=== PATIENT | male | born 1960 | race African-American/Black ===

== ENCOUNTER 2021-03-10 00:02 | Inpatient (IN) | payer MEDICAID ==
[~2021-03-10] VITALS: Ht 167.6 cm; Wt 84.7 kg
[2021-03-10 03:12] LABS: Basophils # (auto) 0.1 10 ^3/uL (0-0.2); Basophils % (auto) 0.8 % (0.0-2.0); Eosinophils # (auto) 0.1 10 ^3/uL (0-0.8); Eosinophils % (auto) 1.2 % (0.0-7.0); Hematocrit 38.1 % (41.0-53.0); Lymphocytes # (auto) 1.5 10 ^3/uL (0.4-5.4); Lymphocytes % (auto) 13.5 % (10.0-50.0); Mean Corpuscular Hemoglobin 32.4 pg (28.0-32.0); Mean Corpuscular Hgb Conc. 34.2 g/dL (32.0-36.0); Mean Corpuscular Volume 94.7 fL (80.0-100.0); Monocytes # (auto) 0.8 10 ^3/uL (0-1.3); Monocytes % (auto) 6.9 % (0.0-12.0); Neutrophils # (auto) 8.7 10 ^3/uL (1.6-8.6); Neutrophils % (auto) 77.6 % (37.0-80.0); Nucleated Red Blood Cells % 0.1 %; Red Blood Cells 4.02 10^6/uL (4.5-5.90); White Blood Cell 11.2 10^3/uL (4.4-10.8)
[2021-03-10 03:28] LABS: INR 1.09 (0.9-1.15); Partial Thromboplastin Time 28.2 sec (23.6-33.0)
[2021-03-10 03:36] LABS: Albumin 2.6 g/dL (3.4-5.0); BUN/Creatinine Ratio 14.9; Magnesium 1.7 mg/dL (1.6-2.6); Potassium 3.6 mmol/L (3.5-5.1)
[2021-03-10 03:41] LABS: Bilirubin, Total 0.4 mg/dL (0.2-1.0); Total Protein 6.4 g/dL (6.4-8.2)
[2021-03-10 03:50] LABS: Urine Bacteria MANY /hpf (None Seen); Urine Blood Negative /uL (Negative); Urine Mucus FEW (None Seen); Urine Specific Gravity 1.015 (1.001-1.035); Urine Sperm PRESENT /hpf (None Seen); Urine WBC 19 /hpf (0 - 3); Urine WBC Clumps PRESENT /hpf (None Seen)
[2021-03-10] MEDS ORDERED: FUROSEMIDE 20 MG/2 ML VIAL IV ONE ×2 (04:30→10:00)
[2021-03-10] MEDS ORDERED: cefTRIAXone 1GM/50ML D5W 50 ML IV ONE (05:30)
[2021-03-10] MEDS ORDERED: ASPirin 325 MG TAB PO ONE (05:30)
[2021-03-10] MEDS ORDERED: MORPHINE SULFATE INJECTION 2 MG/ML SYRG IV PRN (06:45)
[2021-03-10] MEDS ORDERED: NITROGLYCERIN 0.4 MG SL TAB SL PRN (06:45)
[2021-03-10] MEDS ORDERED: DOCUSATE SOD 100 MG CAP PO ONE (06:45)
[2021-03-10] MEDS ORDERED: POTASSIUM CHL 20 Meq TABLET PO ONE (06:45)
[2021-03-10] MEDS ORDERED: ONDANSETRON HCL 4 MG/2 ML VIAL IM ONE (12:00)
[2021-03-10] MEDS ORDERED: ACETAMINOPHEN 325 MG TAB PO ONE (12:00)
[2021-03-10] MEDS ORDERED: TRAZ50TA2 PO (13:40)
[2021-03-10] MEDS ORDERED: HYDR50TA69 PO (13:40)
[2021-03-10] MEDS ORDERED: OMEP20TA PO (13:40)
[2021-03-10] MEDS ORDERED: SIME80CH11 PO (13:40)
[2021-03-10] MEDS ORDERED: AMIT1TAB35 PO (13:40)
[2021-03-10] MEDS ORDERED: ASPI-543 PO (13:40)
[2021-03-10] MEDS ORDERED: BUPR100T15 PO (13:40)
[2021-03-10] MEDS ORDERED: MELO1TAB73 PO (13:40)
[2021-03-10] MEDS ORDERED: LISI-716 PO (13:40)
[2021-03-10] MEDS ORDERED: METF-370 PO (13:40)
[2021-03-10] MEDS ORDERED: GLIP-110 PO (13:40)
[2021-03-10] MEDS ORDERED: SIMV-8 PO (13:40)
[2021-03-10 17:00] VITALS: BP 144/88
[2021-03-10] MEDS ORDERED: ACET-1156 PO (20:08)
[2021-03-10] MEDS ORDERED: DEXTROSE (50%) 50ML SYRG IV ONE (20:15)
[2021-03-10] MEDS ORDERED: ACETAMINOPHEN 325 MG TAB PO PRN (20:15)
[2021-03-10] MEDS ORDERED: ONDANSETRON HCL 4 MG/2 ML VIAL IV PRN (20:15)
[2021-03-10] MEDS ORDERED: DEXTROSE (50%) 50ML SYRG IV PRN (21:00)
[2021-03-10 22:00] VITALS: BP 144/85
[2021-03-10] MEDS ORDERED: hydrALAZINE HCL 10 MG TAB PO PRN (22:00)
[2021-03-10] MEDS ORDERED: AMITRIPTYLINE HCL 25 MG TAB PO SCH (22:00)
[2021-03-10] MEDS ORDERED: ALBUTEROL SULF 2.5 MG/0.5ML(0.5%) NEB SOLN NEB PRN (22:00)
[2021-03-10] MEDS ORDERED: InsuLIN REG 1unit/0.01ml Soln (100units/ml) SC SCH (22:00)
[2021-03-10] MEDS ORDERED: ATORVASTATIN 20 MG TAB PO SCH (22:00)
[2021-03-10] MEDS: ACCU-CHEK COMFORT CURVE STRIP VI SCH (23:00)
[2021-03-10] MEDS: SIMETHICONE 80 MG CHEWABLE TABLET PO SCH (23:00)
[2021-03-10] MEDS: InsuLIN REG 1unit/0.01ml Soln (100units/ml) SC SCH (23:14)
[2021-03-11 04:54] VITALS: BP 138/90
[2021-03-11] MEDS: SIMETHICONE 80 MG CHEWABLE TABLET PO SCH (06:10)
[2021-03-11] MEDS: ACCU-CHEK COMFORT CURVE STRIP VI SCH (06:10)
[2021-03-11] MEDS: InsuLIN REG 1unit/0.01ml Soln (100units/ml) SC SCH (06:12)
[2021-03-11 06:44] LABS: BUN/Creatinine Ratio 23.3; Calcium 8.6 mg/dL (8.5-10.1); Potassium 3.7 mmol/L (3.5-5.1)
[2021-03-11 06:48] LABS: Basophils # (auto) 0.1 10 ^3/uL (0-0.2); Eosinophils # (auto) 0.1 10 ^3/uL (0-0.8); Hematocrit 40.6 % (41.0-53.0); Hemoglobin 13.8 g/dL (13.5-17.5); Lymphocytes # (auto) 1.6 10 ^3/uL (0.4-5.4); Neutrophils % (auto) 77.2 % (37.0-80.0); Nucleated Red Blood Cells % 0.1 %
[2021-03-11 06:52] LABS: Basophils % (auto) 0.6 % (0.0-2.0); Lymphocytes % (auto) 13.3 % (10.0-50.0); Mean Corpuscular Hemoglobin 32.6 pg (28.0-32.0); Mean Corpuscular Hgb Conc. 34.1 g/dL (32.0-36.0); Mean Corpuscular Volume 95.7 fL (80.0-100.0); Monocytes % (auto) 7.9 % (0.0-12.0); Neutrophils # (auto) 9.4 10 ^3/uL (1.6-8.6); Red Blood Cells 4.24 10^6/uL (4.5-5.90); White Blood Cell 12.1 10^3/uL (4.4-10.8)
[2021-03-11] MEDS ORDERED: buPROPion HCL 75 MG TAB PO SCH (07:00)
[2021-03-11] MEDS ORDERED: InsuLIN REG 1unit/0.01ml Soln (100units/ml) SC SCH ×2 (07:00→17:00)
[2021-03-11 09:00] VITALS: BP 122/77
[2021-03-11] MEDS ORDERED: LISINOPRIL 10 MG TAB PO SCH (10:00)
[2021-03-11] MEDS ORDERED: PANTOPRAZOLE 40 MG TAB PO SCH (10:00)
[2021-03-11] MEDS ORDERED: PATIENTS OWN MEDICATION (Simvastatin 20 MG) PO SCH (10:00)
[2021-03-11] MEDS ORDERED: FUROSEMIDE 40 MG/4 ML VIAL IV SCH (10:00)
[2021-03-11] MEDS ORDERED: ASPirin 81 mg TAB PO SCH (10:00)
[2021-03-11] MEDS ORDERED: ACETAMINOPHEN 325 MG TAB PO PRN (10:45)
[2021-03-11] MEDS ORDERED: HYDROcodone-ACET 5/325MG TAB PO PRN (10:45)
[2021-03-11] MEDS ORDERED: hydrALAZINE HCL 20 MG/ML VL IV PRN (10:45)
[2021-03-11 12:25] VITALS: BP 130/84
[2021-03-11] MEDS ORDERED: DEXTROSE (50%) 50ML SYRG IV PRN (14:15)
[2021-03-11] MEDS ORDERED: ACCU-CHEK COMFORT CURVE STRIP VI SCH (17:00)
[2021-03-11] MEDS ORDERED: FURO1TAB31 PO (17:55)
[2021-03-11] MEDS ORDERED: DEXT1SYP9 PO (17:55)
[2021-03-11] MEDS ORDERED: LISI20TA28 PO (17:55)
[2021-03-11] MEDS ORDERED: guaiFENesin-DM 100/10mg/5ml SYR PO PRN (18:00)
== END 2021-03-11 20:52 | disposition home health service (06) | DRG 194 ==
LOC: ER 00:02 → EDBD 00:02 → UNDOADMIN 06:39 → TELE 06:39 → TELE-WESTW 13:04 → OBSVTOIN 22:47
PROVIDERS: ADMIT Nurse Practitioner Family; ATTEND Nurse Practitioner Family
DX: I11.0 Hypertensive heart disease with heart failure (principal); J96.01 Acute respiratory failure with hypoxia; I50.21 Acute systolic (congestive) heart failure; I42.9 Cardiomyopathy, unspecified; E11.9 Type 2 diabetes mellitus without complications; E78.5 Hyperlipidemia, unspecified; Z72.0 Tobacco use; F32.9 Major depressive disorder, single episode, unspecified; Z20.822 Contact with and (suspected) exposure to COVID-19; K21.9 Gastro-esophageal reflux disease without esophagitis
CPT/HCPCS: 36415; 71045; 80048; 80053; 81001; 82962; 83735; 83880; 84484; 85025; 85610; 85730; 87040; 87426; 93005; 93306; 93970; 96365; 96366; 96375; G0378; J0696; J1815

== ENCOUNTER 2021-04-30 07:46 | Inpatient (IN) | payer MEDICAID ==
[~2021-04-30] VITALS: Ht 182.9 cm; Wt 87.9 kg
[~2021-04-30 07:46] MED LIST: AMIT1TAB35 PO; ASPI-543 PO; BUPR100T15 PO; DEXT1SYP9 PO; FURO1TAB31 PO; GLIP-110 PO; LISI20TA28 PO; METF-370 PO; OMEP20TA PO; SIME80CH11 PO; SIMV-8 PO; TRAZ50TA2 PO
[2021-04-30 08:46] LABS: Basophils # (auto) 0.1 10 ^3/uL (0-0.2); Basophils % (auto) 0.6 % (0.0-2.0); Eosinophils # (auto) 0.1 10 ^3/uL (0-0.8); Eosinophils % (auto) 1.2 % (0.0-7.0); Hematocrit 39.8 % (41.0-53.0); Hemoglobin 13.8 g/dL (13.5-17.5); Lymphocytes # (auto) 1.3 10 ^3/uL (0.4-5.4); Lymphocytes % (auto) 14.3 % (10.0-50.0); Mean Corpuscular Hemoglobin 32.6 pg (28.0-32.0); Mean Corpuscular Hgb Conc. 34.7 g/dL (32.0-36.0); Monocytes # (auto) 0.8 10 ^3/uL (0-1.3); Monocytes % (auto) 9.2 % (0.0-12.0); Neutrophils # (auto) 6.7 10 ^3/uL (1.6-8.6); Neutrophils % (auto) 74.7 % (37.0-80.0); Nucleated Red Blood Cells % 0.2 %; Red Blood Cells 4.24 10^6/uL (4.5-5.90); Red Cell Distribution Width 14.5 % (11.8-14.3); White Blood Cell 8.9 10^3/uL (4.4-10.8)
[2021-04-30 08:54] LABS: Albumin 3.1 g/dL (3.4-5.0); Calcium 8.4 mg/dL (8.5-10.1); Magnesium 1.9 mg/dL (1.6-2.6); Potassium 3.8 mmol/L (3.5-5.1)
[2021-04-30 09:00] LABS: BUN/Creatinine Ratio 15.1; Bilirubin, Total 0.5 mg/dL (0.2-1.0); Total Protein 6.9 g/dL (6.4-8.2)
[2021-04-30 09:11] LABS: INR 1.07 (0.9-1.15); Partial Thromboplastin Time 25.9 sec (23.6-33.0)
[2021-04-30] MEDS ORDERED: ASPirin 81 mg TAB PO ONE (09:15)
[2021-04-30] MEDS ORDERED: AZITHROMYCIN 500MG/ 250ML 250 ML IV ONE (10:00)
[2021-04-30] MEDS ORDERED: ENOXAPARIN SOD 60 MG/0.6 ML SYRINGE SC ONE (10:00)
[2021-04-30] MEDS ORDERED: cefTRIAXone 1GM/50ML D5W 50 ML IV ONE (10:00)
[2021-04-30] MEDS ORDERED: METOPROLOL TARTRATE 1MG/1ML-5ML VIAL IV ONE (10:00)
[2021-04-30] MEDS ORDERED: ONDANSETRON HCL 4 MG/2 ML VIAL IV PRN (10:30)
[2021-04-30] MEDS ORDERED: DOCUSATE SOD 100 MG CAP PO PRN (10:30)
[2021-04-30] MEDS ORDERED: HYDROcodone-ACET 5/325MG TAB PO PRN (10:30)
[2021-04-30] MEDS ORDERED: TEMAZEPAM 15 MG CAP PO PRN (10:30)
[2021-04-30] MEDS ORDERED: NITROGLYCERIN 0.4 MG SL TAB SL PRN (10:30)
[2021-04-30] MEDS ORDERED: ACETAMINOPHEN 325 MG TAB PO PRN (10:30)
[2021-04-30] MEDS ORDERED: MORPHINE SULFATE INJECTION 2 MG/ML SYRG IV PRN (10:30)
[2021-04-30] MEDS ORDERED: hydrALAZINE HCL 20 MG/ML VL IV PRN (11:00)
[2021-04-30] MEDS ORDERED: DEXTROSE (50%) 50ML SYRG IV PRN (11:00)
[2021-04-30 13:53] VITALS: BP 121/80
[2021-04-30] MEDS: InsuLIN REG 1unit/0.01ml Soln (100units/ml) SC SCH ×3 (13:55→22:48)
[2021-04-30] MEDS: ACCU-CHEK COMFORT CURVE STRIP VI SCH ×3 (13:55→22:41)
[2021-04-30] MEDS: IPRATROPIUM BROM 0.5 MG/2.5ML INH SOL NEB SCH ×3 (14:00→22:50)
[2021-04-30] MEDS: ALBUTEROL SULF 2.5 MG/0.5ML(0.5%) NEB SOLN NEB SCH ×3 (14:00→22:50)
[2021-04-30] MEDS: SIMETHICONE 80 MG CHEWABLE TABLET PO SCH ×2 (15:49→22:38)
[2021-04-30 18:32] VITALS: BP 133/91
[2021-04-30 22:00] VITALS: BP 164/72
[2021-04-30] MEDS: MORPHINE SULFATE 4 MG/ML SYR/VIAL IV PRN (22:26)
[2021-04-30] MEDS: FLUTICASONE PROP NASAL SPR 0.05 % (50MCG) 16GM EACHNOSTRI SCH (22:37)
[2021-04-30] MEDS: ATORVASTATIN 20 MG TAB PO SCH (22:37)
[2021-04-30] MEDS: ENOXAPARIN SOD 100 MG/1 ML SYRINGE SC SCH (22:39)
[2021-04-30] MEDS: FAMOTIDINE 20 MG TAB PO SCH (22:39)
[2021-05-01 05:00] VITALS: BP 137/95
[2021-05-01] MEDS: SIMETHICONE 80 MG CHEWABLE TABLET PO SCH ×3 (05:27→22:48)
[2021-05-01] MEDS: glipiZIDE 5 MG TAB PO SCH (05:27)
[2021-05-01] MEDS: ACCU-CHEK COMFORT CURVE STRIP VI SCH ×4 (05:28→22:48)
[2021-05-01] MEDS: InsuLIN REG 1unit/0.01ml Soln (100units/ml) SC SCH ×4 (05:28→22:49)
[2021-05-01] MEDS: MORPHINE SULFATE 4 MG/ML SYR/VIAL IV PRN ×2 (05:34→16:09)
[2021-05-01] MEDS: IPRATROPIUM BROM 0.5 MG/2.5ML INH SOL NEB SCH ×5 (06:14→22:04)
[2021-05-01] MEDS: ALBUTEROL SULF 2.5 MG/0.5ML(0.5%) NEB SOLN NEB SCH ×5 (06:14→22:04)
[2021-05-01 06:58] LABS: Basophils # (auto) 0.1 10 ^3/uL (0-0.2); Basophils % (auto) 0.6 % (0.0-2.0); Eosinophils # (auto) 0 10 ^3/uL (0-0.8); Eosinophils % (auto) 0.4 % (0.0-7.0); Hematocrit 42.6 % (41.0-53.0); Hemoglobin 14.2 g/dL (13.5-17.5); Lymphocytes # (auto) 1.6 10 ^3/uL (0.4-5.4); Lymphocytes % (auto) 13.4 % (10.0-50.0); Mean Corpuscular Hemoglobin 31.9 pg (28.0-32.0); Mean Corpuscular Hgb Conc. 33.4 g/dL (32.0-36.0); Mean Corpuscular Volume 95.5 fL (80.0-100.0); Monocytes # (auto) 1.2 10 ^3/uL (0-1.3); Monocytes % (auto) 9.6 % (0.0-12.0); Neutrophils # (auto) 9.4 10 ^3/uL (1.6-8.6); Nucleated Red Blood Cells % 0.1 %; Red Blood Cells 4.46 10^6/uL (4.5-5.90); Red Cell Distribution Width 14.5 % (11.8-14.3); White Blood Cell 12.3 10^3/uL (4.4-10.8)
[2021-05-01 07:27] LABS: Albumin 3.3 g/dL (3.4-5.0); BUN/Creatinine Ratio 17.8; Bilirubin, Total 0.6 mg/dL (0.2-1.0); Calcium 8.4 mg/dL (8.5-10.1)
[2021-05-01 09:00] VITALS: BP 152/80
[2021-05-01] MEDS: FLUTICASONE PROP NASAL SPR 0.05 % (50MCG) 16GM EACHNOSTRI SCH ×2 (10:41→22:47)
[2021-05-01] MEDS: ASPirin-EC 81 mg tab PO SCH (10:42)
[2021-05-01] MEDS: levoFLOXacin 500MG 100 ML IV SCH (10:42)
[2021-05-01] MEDS: FAMOTIDINE 20 MG TAB PO SCH ×2 (10:42→22:48)
[2021-05-01] MEDS: FUROSEMIDE 40 MG TAB PO SCH (10:42)
[2021-05-01] MEDS: LISINOPRIL 20 MG TAB PO SCH (10:43)
[2021-05-01] MEDS: ENOXAPARIN SOD 100 MG/1 ML SYRINGE SC SCH ×2 (12:57→22:00)
[2021-05-01 13:00] VITALS: BP 163/96
[2021-05-01] MEDS ORDERED: metOLazone 5 MG TAB PO ONE (13:15)
[2021-05-01 17:00] VITALS: BP 125/80
[2021-05-01] MEDS: TAMSULOSIN HYDROCHLORIDE 0.4 MG CAP PO SCH (18:23)
[2021-05-01 22:00] VITALS: BP 116/71
[2021-05-01] MEDS ORDERED: AMITRIPTYLINE HCL 25 MG TAB PO SCH (22:00)
[2021-05-01] MEDS: ATORVASTATIN 20 MG TAB PO SCH (22:47)
[2021-05-01] MEDS: CARVEDILOL 3.125 MG TAB PO SCH (22:47)
[2021-05-02 05:00] VITALS: BP 121/62
[2021-05-02] MEDS: SIMETHICONE 80 MG CHEWABLE TABLET PO SCH ×2 (06:00→14:00)
[2021-05-02] MEDS: glipiZIDE 5 MG TAB PO SCH (06:26)
[2021-05-02] MEDS: ACCU-CHEK COMFORT CURVE STRIP VI SCH ×3 (06:27→17:00)
[2021-05-02] MEDS: InsuLIN REG 1unit/0.01ml Soln (100units/ml) SC SCH ×3 (06:27→17:00)
[2021-05-02] MEDS: ENOXAPARIN SOD 100 MG/1 ML SYRINGE SC SCH (07:14)
[2021-05-02] MEDS: ALBUTEROL SULF 2.5 MG/0.5ML(0.5%) NEB SOLN NEB SCH ×6 (07:31→19:05)
[2021-05-02] MEDS: IPRATROPIUM BROM 0.5 MG/2.5ML INH SOL NEB SCH ×6 (07:31→19:05)
[2021-05-02 08:30] VITALS: BP 141/116
[2021-05-02 08:37] LABS: Basophils # (auto) 0.1 10 ^3/uL (0-0.2); Basophils % (auto) 0.5 % (0.0-2.0); Eosinophils # (auto) 0.1 10 ^3/uL (0-0.8); Eosinophils % (auto) 1.1 % (0.0-7.0); Hematocrit 42.6 % (41.0-53.0); Lymphocytes # (auto) 1.4 10 ^3/uL (0.4-5.4); Lymphocytes % (auto) 14.2 % (10.0-50.0); Mean Corpuscular Hemoglobin 33.2 pg (28.0-32.0); Mean Corpuscular Hgb Conc. 35.3 g/dL (32.0-36.0); Mean Corpuscular Volume 94.2 fL (80.0-100.0); Monocytes # (auto) 1.1 10 ^3/uL (0-1.3); Monocytes % (auto) 11.6 % (0.0-12.0); Neutrophils # (auto) 7.1 10 ^3/uL (1.6-8.6); Neutrophils % (auto) 72.6 % (37.0-80.0); Nucleated Red Blood Cells % 0.1 %; Red Blood Cells 4.53 10^6/uL (4.5-5.90); White Blood Cell 9.8 10^3/uL (4.4-10.8)
[2021-05-02 08:39] LABS: INR 1.19 (0.9-1.15); Partial Thromboplastin Time 30.1 sec (23.6-33.0)
[2021-05-02 08:41] LABS: Calcium 9.2 mg/dL (8.5-10.1); Potassium 3.6 mmol/L (3.5-5.1)
[2021-05-02 08:45] LABS: BUN/Creatinine Ratio 15.2
[2021-05-02] MEDS: FAMOTIDINE 20 MG TAB PO SCH (10:00)
[2021-05-02] MEDS: LISINOPRIL 20 MG TAB PO SCH (10:00)
[2021-05-02] MEDS: ASPirin-EC 81 mg tab PO SCH (10:00)
[2021-05-02] MEDS: FUROSEMIDE 40 MG TAB PO SCH (10:00)
[2021-05-02] MEDS: CARVEDILOL 3.125 MG TAB PO SCH (10:00)
[2021-05-02] MEDS: levoFLOXacin 500MG 100 ML IV SCH (10:00)
[2021-05-02] MEDS: FLUTICASONE PROP NASAL SPR 0.05 % (50MCG) 16GM EACHNOSTRI SCH (10:00)
[2021-05-02] MEDS ORDERED: buPROPion HCL 75 MG TAB PO SCH (10:00)
[2021-05-02] MEDS ORDERED: HEPARIN SODIUM (PORCINE) 5000 UNITS/ML 1ML VIAL ONE (10:14)
[2021-05-02] MEDS ORDERED: VERAPAMIL 2.5MG/ML INJ 2ML VIAL IV ONE (10:14)
[2021-05-02] MEDS ORDERED: ANGIOMAX 250 MG VIAL IV ONE (10:14)
[2021-05-02] MEDS ORDERED: MIDAZOLAM HCL 2MG/2ML 2ml VIAL (1mg/ml) ONE (10:15)
[2021-05-02] MEDS ORDERED: fentaNYL CITRATE 100 MCG/2 ML VL ONE (10:15)
[2021-05-02] MEDS ORDERED: SODIUM CHL 0.9% 0 ML ONE (10:15)
[2021-05-02] MEDS ORDERED: IODIXANOL 320MG/ML 100ML BTL IV ONE (10:40)
[2021-05-02] MEDS ORDERED: LIDOCAINE 2%HCL (LOCAL ANESTH.) INJ 20ML MDV ONE (10:40)
[2021-05-02] MEDS ORDERED: diphenhdrAMINE HCL 50 MG/1 ML VL ONE (10:53)
[2021-05-02] MEDS ORDERED: methylPREDNISolone SOD SUCC 125 MG/2 ML VL ONE (11:00)
[2021-05-02] MEDS ORDERED: FAMOTIDINE (10MG/ML) 2ML VL IV ONE (11:02)
[2021-05-02 16:34] VITALS: BP 113/81
[2021-05-02 17:00] VITALS: BP 162/79
[2021-05-02] MEDS: TAMSULOSIN HYDROCHLORIDE 0.4 MG CAP PO SCH (18:00)
== END 2021-05-02 19:14 | disposition home or self-care (01) | DRG 190 ==
LOC: ER 07:46 → EDBD 07:46 → TELE 10:29 → TELE-CENTR 18:14
PROVIDERS: ADMIT Internal Medicine; ATTEND Internal Medicine
PROC: 4A023N7 Measurement of Cardiac Sampling and Pressure, Left Heart, Percutaneous Approach (ICD-10-PCS; principal; 2021-05-02)
PROC: B211YZZ Fluoroscopy of Multiple Coronary Arteries using Other Contrast (ICD-10-PCS; 2021-05-02)
PROC: B215YZZ Fluoroscopy of Left Heart using Other Contrast (ICD-10-PCS; 2021-05-02)
DX: I21.4 Non-ST elevation (NSTEMI) myocardial infarction (principal); J18.9 Pneumonia, unspecified organism; I11.0 Hypertensive heart disease with heart failure; E44.1 Mild protein-calorie malnutrition; I50.9 Heart failure, unspecified; J44.0 Chronic obstructive pulmonary disease with (acute) lower respiratory infection; Z79.4 Long term (current) use of insulin; E78.5 Hyperlipidemia, unspecified; F10.20 Alcohol dependence, uncomplicated; F17.210 Nicotine dependence, cigarettes, uncomplicated; F51.04 Psychophysiologic insomnia; M19.90 Unspecified osteoarthritis, unspecified site; I25.10 Atherosclerotic heart disease of native coronary artery without angina pectoris; Z20.822 Contact with and (suspected) exposure to COVID-19; Z79.82 Long term (current) use of aspirin; Z79.899 Other long term (current) drug therapy; Z82.49 Family history of ischemic heart disease and other diseases of the circulatory system; Z83.3 Family history of diabetes mellitus; Z68.26 Body mass index [BMI] 26.0-26.9, adult; Z71.6 Tobacco abuse counseling
CPT/HCPCS: 36415; 71045; 80048; 80053; 82962; 83036; 83735; 83880; 84443; 84484; 85025; 85610; 85730; 86850; 86900; 86901; 87040; 87426; 93005; 93458; 94640; 96365; 96368; 96372; 96375; 99152; G0378; J0696; J1815; J1956; J2250; J3490; Q9967